=== PATIENT | female | born 1940 | race Caucasian/White ===

== ENCOUNTER 2017-08-21 14:28 | Emergency (ER) | payer OTHER ==
[~2017-08-21] VITALS: Ht 170.2 cm; Wt 137.7 kg
[~2017-08-21 14:28] MED LIST: BUSPAR15 MG PO; COLACE50 MG PO; CORTISPORIN CR7.5 GM TP; CORTIZONE-1028 GM TP; CYMBALTA30 MG PO; DICLOFENAC SODI50 MG PO; ELIQUIS5 MG PO; FLOMAX0.4 MG PO; GLUCOPHAGE500 MG PO; KEFLEX500 MG PO; LEVAQUIN750 MG PO; LISINOPRIL2.5 MG PO; LISINOPRIL5 MG PO; MEDROL32 MG PO; METFORMIN HCL500 MG PO; MIRALAX255 GM PO; MOBIC15 MG PO; PERCOCET 5/31 TABLET PO; SYNTHROID100 MCG PO; SYNTHROID88 MCG PO; ULTRAM50 MG PO; VICODIN 5-3001 EACH PO; VITAMIN D-3 401 EACH PO; VITAMIN D2000 UNIT PO; ZOFRAN4 MG PO
[2017-08-21 15:10] LABS: HEMATOCRIT 43.4 % (36.0-46.0); HEMOGLOBIN 14.7 G/DL (11.9-15.5); MCH 32.2 PG (29.0-34.0); MCHC 33.9 G/DL (30.0-36.0); MCV 95.2 FL (83-99); PLATELET COUNT 213 K/uL (156-360); RBC DIS.WIDTH-CV 12.6 % (11.8-14.6); RBC DIS.WIDTH-SD 43.8 % (39-53); RED BLOOD COUNT 4.56 M/uL (3.80-5.20); WHITE BLOOD COUNT 7.7 K/uL (4.1-10.2)
[2017-08-21 15:20] LABS: CHLORIDE 101 mEq/L (99-109); POTASSIUM 5.5 mEq/L (3.7-5.4); SODIUM 137 mEq/L (136-147)
[2017-08-21 15:21] LABS: GLUCOSE 183 mg/dL (70-99)
[2017-08-21 15:25] LABS: CREATININE 1.2 mg/dL (0.6-1.3); GFR ESTIMATE (CALCULATED) 47 mL/min/
[2017-08-21 15:26] LABS: UREA NITROGEN (BUN) 20 mg/dL (9-23)
[2017-08-21 15:32] LABS: TROP-I INTERPRETATION NEGATIVE; TROPONIN-I 0.01 ng/mL (0.0-0.30)
[2017-08-21 16:24] VITALS: BP 128/54
== END 2017-08-21 16:24 | disposition home or self-care (01) ==
LOC: EME 14:28
PROVIDERS: Emergency Medicine
DX: R13.10 Dysphagia, unspecified (principal); E87.5 Hyperkalemia; R07.0 Pain in throat; E11.9 Type 2 diabetes mellitus without complications; Z79.84 Long term (current) use of oral hypoglycemic drugs; Z86.718 Personal history of other venous thrombosis and embolism; Z79.01 Long term (current) use of anticoagulants
CPT/HCPCS: 80048; 84484; 85027; 93005; 99281; 99284

== ENCOUNTER 2017-09-21 11:05 | Inpatient (IN) | payer OTHER ==
[~2017-09-21] VITALS: Ht 170.2 cm; Wt 141.2 kg
[2017-09-21 12:26] LABS: APPEARANCE CLOUDY ((CLEAR)); BILIRUBIN NEGATIVE; BLOOD MODERATE; COLOR YELLOW ((YELLOW)); GLUCOSE (STRIP) NEGATIVE; KETONES NEGATIVE; LEUKOCYTES LARGE; NITRITE NEGATIVE; PROTEIN (STRIP) 100; UROBILINOGEN 0.2 MG/DL (0.2-1.0)
[2017-09-21 12:42] LABS: RED BLOOD CELLS 0-5 /HPF (0-5)
[2017-09-21 12:43] LABS: EPITHELIAL CELLS 2+ /HPF; MUCUS 1+ /LPF; WHITE BLOOD CELLS 0-5 /HPF (0-5)
[2017-09-21 12:44] LABS: AMORPHOUS PHOSPHATE CRYSTALS 2+; BACTERIA 1+ /HPF; UCUL ADDED? NO
[2017-09-21 13:01] LABS: HEMATOCRIT 44.8 % (36.0-46.0); HEMOGLOBIN 15.1 G/DL (11.9-15.5); MCH 32.2 PG (29.0-34.0); MCHC 33.7 G/DL (30.0-36.0); MCV 95.5 FL (83-99); PLATELET COUNT 187 K/uL (156-360); RBC DIS.WIDTH-CV 12.8 % (11.8-14.6); RBC DIS.WIDTH-SD 44.5 % (39-53); RED BLOOD COUNT 4.69 M/uL (3.80-5.20)
[2017-09-21 13:08] LABS: ALBUMIN 4.2 g/dL (3.2-4.8)
[2017-09-21 13:09] LABS: CHLORIDE 100 mEq/L (99-109); POTASSIUM 5.4 mEq/L (3.7-5.4); SODIUM 135 mEq/L (136-147)
[2017-09-21 13:11] LABS: GLUCOSE 188 mg/dL (70-99); TOTAL PROTEIN 7.5 g/dL (6.4-8.3)
[2017-09-21 13:13] LABS: TOTAL BILIRUBIN 1.6 mg/dL (0.0-1.0)
[2017-09-21 13:14] LABS: ALKALINE PHOSPHATASE 103 IU/L (3-129)
[2017-09-21 13:15] LABS: CREATININE 1.3 mg/dL (0.6-1.3); GFR ESTIMATE (CALCULATED) 42 mL/min/
[2017-09-21 13:16] LABS: AST (GOT) 29 IU/L (2-34); UREA NITROGEN (BUN) 20 mg/dL (9-23)
[2017-09-21 13:17] LABS: ALT (GPT) 26 IU/L (3-49)
[2017-09-21] MEDS ORDERED: HYDROCODON-ACE1 EAC9 PO (16:38)
[2017-09-21] MEDS ORDERED: LIPITOR20 MG PO (16:39)
[2017-09-21 19:54] VITALS: BP 107/60
[2017-09-22 00:12] VITALS: BP 110/68
[2017-09-22 07:15] VITALS: BP 148/69
[2017-09-22 07:16] LABS: MCH 31.2 PG (29.0-34.0); MCHC 32.5 G/DL (30.0-36.0); MCV 95.9 FL (83-99); RBC DIS.WIDTH-SD 46.2 % (39-53); RED BLOOD COUNT 4.17 M/uL (3.80-5.20); WHITE BLOOD COUNT 11.4 K/uL (4.1-10.2)
[2017-09-22 07:21] LABS: CHLORIDE 102 MEQ/L (99-109); GLUCOSE 151 mg/dL (70-99); SODIUM 134 MEQ/L (136-147); UREA NITROGEN (BUN) 25 mg/dL (9-23)
[2017-09-22 07:31] LABS: CREATININE 1.8 MG/DL (0.6-1.3)
[2017-09-22 07:32] LABS: GFR ESTIMATE (CALCULATED) 29 mL/min/; PLAT.SUFFICIENCY DECREASED; PLATELET COUNT 105 K/uL (156-360); POTASSIUM 4.3 MEQ/L (3.7-5.4)
[2017-09-22 15:52] VITALS: BP 100/53
[2017-09-23] VITALS: BP 113/65
[2017-09-23 05:50] LABS: HEMATOCRIT 36.2 % (36.0-46.0); HEMOGLOBIN 11.7 G/DL (11.9-15.5); MCH 31.1 PG (29.0-34.0); MCHC 32.3 G/DL (30.0-36.0); MCV 96.3 FL (83-99); PLATELET COUNT 83 K/uL (156-360); RBC DIS.WIDTH-CV 13.2 % (11.8-14.6); RBC DIS.WIDTH-SD 47.2 % (39-53); RED BLOOD COUNT 3.76 M/uL (3.80-5.20); WHITE BLOOD COUNT 14.3 K/uL (4.1-10.2)
[2017-09-23 06:11] LABS: CHLORIDE 104 MEQ/L (99-109); SODIUM 135 MEQ/L (136-147)
[2017-09-23 06:17] LABS: CREATININE 1.4 MG/DL (0.6-1.3); GFR ESTIMATE (CALCULATED) 39 mL/min/; GLUCOSE 153 mg/dL (70-99); UREA NITROGEN (BUN) 33 mg/dL (9-23)
[2017-09-23 10:18] VITALS: BP 133/63
[2017-09-23 16:21] VITALS: BP 131/72
[2017-09-23 23:33] VITALS: BP 154/72
[2017-09-24 05:40] LABS: HEMATOCRIT 37.9 % (36.0-46.0); HEMOGLOBIN 12.6 G/DL (11.9-15.5); MCH 31.2 PG (29.0-34.0); MCHC 33.2 G/DL (30.0-36.0); MCV 93.8 FL (83-99); PLATELET COUNT 92 K/uL (156-360); RBC DIS.WIDTH-CV 13.1 % (11.8-14.6); RBC DIS.WIDTH-SD 45.4 % (39-53); RED BLOOD COUNT 4.04 M/uL (3.80-5.20)
[2017-09-24 06:03] LABS: CHLORIDE 103 MEQ/L (99-109); CREATININE 1.1 MG/DL (0.6-1.3); GFR ESTIMATE (CALCULATED) 51 mL/min/; GLUCOSE 138 mg/dL (70-99); POTASSIUM 4.5 MEQ/L (3.7-5.4); SODIUM 137 MEQ/L (136-147); UREA NITROGEN (BUN) 28 mg/dL (9-23)
[2017-09-24 08:01] VITALS: BP 120/58
[2017-09-24] MEDS ORDERED: CEFTIN500 MG PO (11:42)
[2017-09-24] MEDS ORDERED: TAMSULOSIN HCL0.4 MG PO (11:42)
[2017-09-24] MEDS ORDERED: NYSTATIN15 GM TP (11:43)
[2017-09-24] MEDS ORDERED: NOVOLOG 10100 UNITS/ SC (11:43)
[2017-09-24] MEDS ORDERED: DOCUSATE SODIU100 MG PO (11:43)
[2017-09-24] MEDS ORDERED: HYDROCODON-ACE1 EAC9 PO (11:45)
[2017-09-26] MEDS ORDERED: FLORASTOR250 MG PO (11:23)
== END 2017-09-24 18:06 | DRG 694 ==
LOC: EME 11:05 → EDOF 16:32 → 5SOUTH 16:32 → ENRESERV 16:44 → 5SOUTH 19:29 → ENPENDDIS 09-24 12:17 → 5SOUTH 09-24 18:06
PROVIDERS: Emergency Medicine; Internal Medicine
PROC: 0T768DZ Dilation of Right Ureter with Intraluminal Device, Via Natural or Artificial Opening Endoscopic (ICD-10-PCS; principal; 2017-09-22)
DX: N20.2 Calculus of kidney with calculus of ureter (principal); N17.9 Acute kidney failure, unspecified; N30.90 Cystitis, unspecified without hematuria; E11.65 Type 2 diabetes mellitus with hyperglycemia; E87.2 Acidosis; E87.1 Hypo-osmolality and hyponatremia; E66.01 Morbid (severe) obesity due to excess calories; Z68.42 Body mass index [BMI] 45.0-49.9, adult; M19.90 Unspecified osteoarthritis, unspecified site; M48.00 Spinal stenosis, site unspecified; E03.9 Hypothyroidism, unspecified; G89.29 Other chronic pain; M54.5 Low back pain; K59.00 Constipation, unspecified; Z91.81 History of falling; Z87.442 Personal history of urinary calculi; Z86.718 Personal history of other venous thrombosis and embolism; Z87.440 Personal history of urinary (tract) infections; Z79.82 Long term (current) use of aspirin; Z79.84 Long term (current) use of oral hypoglycemic drugs
CPT/HCPCS: 73560; 74177; 74420; 80048; 80053; 81003; 82565; 82948; 83605; 84520; 85027; 87086; 94799; 99281; 99285; J0330; J0696; J0744; J1650; J1885; J2405; J3010; J7030

== ENCOUNTER → 2017-09-30 | Outpatient (CLI) | payer OTHER ==
[~2017-09-30] VITALS: Ht 170.2 cm; Wt 141.2 kg
[~2017-09-30] MED LIST changes: +CEFTIN500 MG PO; +DOCUSATE SODIU100 MG PO; +FLORASTOR250 MG PO; +HYDROCODON-ACE1 EAC9 PO; +LIPITOR20 MG PO; +NOVOLOG 10100 UNITS/ SC; +NYSTATIN15 GM TP; +TAMSULOSIN HCL0.4 MG PO
== END | disposition home or self-care (01) ==
LOC: AMB 09:00
PROVIDERS: Urology
PROC: 0TF3XZZ Fragmentation in Right Kidney Pelvis, External Approach (ICD-10-PCS; principal; 2017-09-30)
DX: N20.2 Calculus of kidney with calculus of ureter (principal)
CPT/HCPCS: 82948; J0696; J1170; J7050

== ENCOUNTER 2017-11-04 10:45 | Inpatient (IN) | payer OTHER ==
[~2017-11-04] VITALS: Ht 170.2 cm; Wt 136.0 kg
[~2017-11-04 10:45] MED LIST changes: +LORCET HD 10-31 EACH PO; +LYRICA50 MG PO
[2017-11-04 11:29] VITALS: BP 149/66
[2017-11-04 16:57] VITALS: BP 130/63
[2017-11-04 19:36] VITALS: BP 132/60
[2017-11-05 00:06] VITALS: BP 113/55
[2017-11-05 03:20] VITALS: BP 123/60
[2017-11-05 07:41] VITALS: BP 126/96
[2017-11-05 10:21] LABS: HEMOGLOBIN 12.4 G/DL (11.9-15.5); MCH 31.8 PG (29.0-34.0); MCHC 32.6 G/DL (30.0-36.0); MCV 97.4 FL (83-99); PLATELET COUNT 147 K/uL (156-360); RBC DIS.WIDTH-CV 14.2 % (11.8-14.6); WHITE BLOOD COUNT 11.3 K/uL (4.1-10.2)
[2017-11-05 10:43] LABS: CHLORIDE 106 MEQ/L (99-109); CREATININE 0.9 MG/DL (0.6-1.3); GFR ESTIMATE (CALCULATED) > 59 mL/min/; GLUCOSE 155 mg/dL (70-99); POTASSIUM 4.4 MEQ/L (3.7-5.4); SODIUM 140 MEQ/L (136-147); UREA NITROGEN (BUN) 14 mg/dL (9-23)
[2017-11-05 15:14] VITALS: BP 136/62
[2017-11-06 00:04] VITALS: BP 151/65
[2017-11-06 08:18] VITALS: BP 130/74
[2017-11-06 15:49] VITALS: BP 118/60
[2017-11-06 19:20] VITALS: BP 122/66
[2017-11-06 23:33] VITALS: BP 104/53
[2017-11-07 04:00] VITALS: BP 117/57
[2017-11-07 07:15] VITALS: BP 126/60
[2017-11-07 07:24] LABS: BASOPHIL (%) 0.4 % (0-1); EOSINOPHIL (%) 1.7 % (0-5); EOSINOPHIL COUNT 0.2 K/uL (0-0.3); HEMATOCRIT 35.2 % (36.0-46.0); HEMOGLOBIN 11.2 G/DL (11.9-15.5); IMMATURE GRANULOCYTE (%) 0.6 % (0.0-0.7); LYMPHOCYTE (%) 13.3 % (15-42); LYMPHOCYTE COUNT 1.5 K/uL (1.0-2.8); MCH 30.7 PG (29.0-34.0); MCHC 31.8 G/DL (30.0-36.0); MCV 96.4 FL (83-99); MONOCYTE (%) 10.8 % (3-12); MONOCYTE COUNT 1.2 K/uL (0-0.8); NEUTROPHIL (%) 73.2 % (45-76); PLATELET COUNT 120 K/uL (156-360); RBC DIS.WIDTH-CV 13.8 % (11.8-14.6); RBC DIS.WIDTH-SD 49.4 % (39-53); RED BLOOD COUNT 3.65 M/uL (3.80-5.20); WHITE BLOOD COUNT 10.9 K/uL (4.1-10.2)
[2017-11-07 07:47] LABS: CHLORIDE 102 MEQ/L (99-109); CREATININE 0.9 MG/DL (0.6-1.3); GFR ESTIMATE (CALCULATED) > 59 mL/min/; POTASSIUM 4.1 MEQ/L (3.7-5.4); SODIUM 137 MEQ/L (136-147); UREA NITROGEN (BUN) 14 mg/dL (9-23)
[2017-11-07 07:50] LABS: GLUCOSE 114 mg/dL (70-99)
[2017-11-07] MEDS ORDERED: AMOXICILLIN500 MG PO (09:51)
[2017-11-07] MEDS ORDERED: LEVOFLOXACIN500 MG PO (10:26)
[2017-11-07 11:17] VITALS: BP 118/86
[2017-11-07 15:38] VITALS: BP 129/70
== END 2017-11-07 17:13 | DRG 872 ==
LOC: SDC 10:45 → 2SOUTH 14:25 → 2EAST 14:25 → ENRESERV 14:32 → SDC 14:59 → ENRESERV 15:49 → 2EAST 15:59 → SDC 16:21 → 2EAST 11-05 10:00 → ENPENDDIS 11-07 → 2EAST 11-07 17:13
PROVIDERS: Nurse Practitioner Adult Health; Urology
DX: A41.52 Sepsis due to Pseudomonas (principal); A41.81 Sepsis due to Enterococcus; N39.0 Urinary tract infection, site not specified; R50.9 Fever, unspecified; N20.2 Calculus of kidney with calculus of ureter; E11.9 Type 2 diabetes mellitus without complications; E03.9 Hypothyroidism, unspecified; G43.909 Migraine, unspecified, not intractable, without status migrainosus; R11.0 Nausea; E66.01 Morbid (severe) obesity due to excess calories; Z68.42 Body mass index [BMI] 45.0-49.9, adult; M19.90 Unspecified osteoarthritis, unspecified site; Z86.711 Personal history of pulmonary embolism
CPT/HCPCS: 71045; 80048; 82948; 85025; 85027; 87040; 87077; 87086; 87186; 87801; C2625; G0378; J0690; J0692; J1170; J1580; J2250; J2405; J3010; J3370; J7120